=== PATIENT | female | born 1970 ===

== ENCOUNTER 2018-08-02 11:38 | Outpatient (REF) | payer OTHER, SELFPAY ==
[2018-08-02 22:32] LABS: Abs Immature Grans 0.04 k/cumm (0.0-0.09); Absolute Basophil Count 0.03 k/cumm (0.0-0.2); Absolute Eosinophil Count 0.18 k/cumm (0.0-0.7); Absolute Lymphocyte Count 2.45 k/cumm (1.2-3.4); Absolute Monocyte Count 0.73 k/cumm (0.11-0.7); Absolute Neutrophil Count 10.12 k/cumm (1.2-6.7); Basophils % 0.2; Eosinophils % 1.3; HCT 45.2 % (36.0-46.0); HGB 15.5 g/dL (12.0-15.5); Immature Grans % 0.3; Lymphocytes % 18.1; Mean Corp. HGB Concentration 34.3 g/dL (32.0-36.0); Mean Corpuscular Hemoglobin 30.7 pg (27.0-33.0); Mean Corpuscular Volume 89.5 fL (80-95); Mean Platelet Volume 9.6 fL (8.0-11.0); Monocytes % 5.4; Neutrophils % 74.7; Platelet Count 391 x1000/uL (130-400); RBC 5.05 m/cumm (4.00-5.20); RBC Distribution Width 12.7 % (11.7-14.6); White Blood Cell Count 13.55 k/cumm (4.4-10.8)
[2018-08-02 23:20] LABS: ALT 39 U/L (12-78); AST 19 U/L (15-37); Albumin 4.3 g/dL (3.4-5.0); Alkaline Phosphatase 75 U/L (46-116); Anion Gap 9.9 mmol/L (3-11); BUN 9 mg/dL (7-18); Bilirubin, Total 0.3 mg/dL (0.2-1.0); CO2 28.1 mmol/L (21.0-32.0); CREATININE 0.72 mg/dL (0.55-1.02); Calcium 9.6 mg/dL (8.5-10.1); Chloride 99 mmol/L (98-107); Glucose 93 mg/dL (70-100); Potassium 4.1 mmol/L (3.5-5.1); Sodium 137 mmol/L (136-145); TSH (W/Ref FT4) 0.72 uIU/mL (0.358-3.74); Total Protein 7.9 g/dL (6.4-8.2); Vitamin B12 1015 pg/mL (193-986)
[2018-08-03 06:51] LABS: Vitamin D 25 Total 11.9 ng/ml (30-100)
== END 2018-08-02 11:58 ==
LOC: NCHCN 11:38
PROVIDERS: PCP Internal Medicine; Visit Provider Nurse Practitioner Family
DX: F32.9 Major depressive disorder, single episode, unspecified (principal); F41.8 Other specified anxiety disorders; F51.05 Insomnia due to other mental disorder; E66.9 Obesity, unspecified
CPT/HCPCS: 80053; 82306; 82607; 84443; 85025

== ENCOUNTER 2021-03-10 22:05 | Outpatient (REF) | payer OTHER, SELFPAY ==
[2021-03-12 13:15] LABS: COVID-19 RT-PCR UVMMC Result Negative (Negative)
== END 2021-03-10 22:06 | disposition home or self-care (01) ==
LOC: NCHCN 22:05
PROVIDERS: PCP Internal Medicine; Visit Provider Nurse Practitioner Family
DX: Z20.822 Contact with and (suspected) exposure to COVID-19 (principal); J06.9 Acute upper respiratory infection, unspecified
CPT/HCPCS: U0003